=== PATIENT | male | born 1985 | race Asian ===

== ENCOUNTER 2023-12-11 07:43 | Outpatient (CLI) | payer OTHER ==
--- NOTE | 2023-12-12 18:50 | Ultrasound Report ---
PROCEDURE: Abdomen Limited INDICATIONS: HIST OF CHOLELITHIASIS TECHNIQUE: Real-time focused scanning was performed of the abdomen, with image documentation. COMPARISONS: None. FINDINGS: Liver: Liver is normal in size and homogeneous in echotexture. Main portal vein is patent with norm al hepatopedal flow. Gallbladder: Numerous stones within the gallbladder. No gallbladder wall thickening or pericholecysti c fluid. Sonographic Riley sign is negative.. Biliary ducts: Intrahepatic bile ducts are non-dilated. Extrahepatic bile duct caliber measures 0.3 mm. Normal is 6-7 mm or less in diameter, or 10 mm or less post-cholecystectomy. Pancreas: Not well visualized due to overlying bowel gas. Right kidney: Normal in size and echotexture. Right kidney measures 10.0 cm long. No hydronephrosis or nephrolithiasis. No solid masses. No complex renal cystic lesions which require follow-up. IVC: Intrahepatic inferior vena cava is patent. Miscellaneous: No free abdominal fluid. IMPRESSION: Cholelithiasis without sonographic evidence of acute cholecystitis. Reviewed by: Katerine Christian MD on 12/12/2023 4:07 PM PST Approved by: Katerine Christian MD on 12/12/2023 4:07 PM PST Station ID: [id number]
== END 2023-12-11 07:44 | disposition home or self-care (01) ==
LOC: DI 07:43
PROVIDERS: ATTEND Physician Assistant
DX: Z87.19 Personal history of other diseases of the digestive system (principal); K80.20 Calculus of gallbladder without cholecystitis without obstruction

== ENCOUNTER 2023-12-11 08:24 | Outpatient (CLI) | payer OTHER ==
[2023-12-11 08:45] LABS: BASOPHILS # (AUTO) 0.2 10^3/uL (0.0-0.1); BASOPHILS % (AUTO) 1.3 %; EOSINOPHILS # (AUTO) 0.2 10^3/uL (0.0-0.7); EOSINOPHILS % (AUTO) 1.7 %; HCT - HEMATOCRIT 48.6 % (42.0-52.0); HGB - HEMOGLOBIN 16.3 g/dL (14.0-18.0); LYMPHOCYTES # (AUTO) 5.2 10^3/uL (1.5-3.5); LYMPHOCYTES % (AUTO) 39.8 %; MEAN CORPUSCULAR HEMOGLOBIN 31.8 pg (27.0-31.0); MEAN CORPUSCULAR HGB CONC 33.5 g/dL (32.0-36.0); MEAN CORPUSCULAR VOLUME 94.7 fL (80.0-94.0); MEAN PLATELET VOLUME 10.4 fL (7.4-11.4); MONOCYTES # (AUTO) 0.9 10^3/uL (0.0-1.0); MONOCYTES % (AUTO) 6.9 %; NEUTROPHILS # (AUTO) 6.6 10^3/uL (1.5-6.6); NEUTROPHILS % (AUTO) 50.1 %; PLT - PLATELET COUNT 313 10^3/uL (130-450); RED BLOOD COUNT 5.13 10^6/uL (4.70-6.10); RED CELL DISTRIBUTION WIDTH 14.6 % (12.0-15.0); WHITE BLOOD COUNT 13.2 x10^3/uL (4.8-10.8)
[2023-12-11 08:57] LABS: ALBUMIN 4.5 g/dL (3.2-5.5); ALBUMIN/GLOBULIN RATIO 1.7 (1.0-2.2); ALKALINE PHOSPHATASE 74 IU/L (42-121); ALT ALANINE AMINOTRANSFERASE 17 IU/L (10-60); AST ASPARTATE AMINOTRANSFERASE 20 IU/L (10-42); BILIRUBIN,TOTAL 0.7 mg/dL (0.2-1.0); BUN - BLOOD UREA NITROGEN 8 mg/dL (6-20); CALCIUM 9.8 mg/dL (8.5-10.3); CARBON DIOXIDE - CO2 29 mmol/L (21-32); CHLORIDE 106 mmol/L (101-111); CHOL/HDL RATIO 4.5 (<5.0); CHOLESTEROL 220 mg/dL; CREATININE 0.7 mg/dL (0.6-1.3); GFR - MDRD 127 (>89); GLUCOSE 97 mg/dL (74-104); HDL CHOLESTEROL 49 mg/dL; LDL CHOLESTEROL,CALCULATED 152 mg/dL; LDL/HDL RATIO 3.1 (<3.6); POTASSIUM 4.1 mmol/L (3.5-4.5); SODIUM 139 mmol/L (135-145); TOTAL PROTEIN 7.1 g/dL (6.4-8.9); TRIGLYCERIDES 97 mg/dL (48-352); VLDL CHOLESTEROL 19 mg/dL
[2023-12-11 09:28] LABS: PLATELET ESTIMATE, MANUAL NORMAL (130-450,000) (NORMAL); PLATELET MORPHOLOGY NORMAL APPEARANCE (NORMAL); RBC MORPHOLOGY (MULTIPLE) NORMAL APPEARANCE (NORMAL)
--- NOTE | 2023-12-12 12:48 | XRAY Report ---
PROCEDURE: Clavicle LT INDICATIONS: FRACTURE OF UNSPECIFIED PART OF LEFT CLAVICLE, SEQ TECHNIQUE: 2 views of the clavicle were acquired. COMPARISON: None. FINDINGS: Bones: Status post clavicle fixation using plate and screw construct. Alignment appears near anatomi c. Acromioclavicular interval is maintained. No suspicious bony lesions. Soft tissues: No suspicious soft tissue calcifications or masses. IMPRESSION: Clavicular internal fixation in near-anatomic alignment. No evidence of hardware complication. Reviewed by: Katerine Christian MD on 12/12/2023 12:47 PM PST Approved by: Katerine Christian MD on 12/12/2023 12:47 PM PST Station ID: [id number]
== END 2023-12-11 08:25 | disposition home or self-care (01) ==
LOC: DI 08:24
PROVIDERS: ATTEND Physician Assistant
DX: S42.002D Fracture of unspecified part of left clavicle, subsequent encounter for fracture with routine healing (principal); Z00.00 Encounter for general adult medical examination without abnormal findings; Z13.220 Encounter for screening for lipoid disorders; Z87.19 Personal history of other diseases of the digestive system; K80.20 Calculus of gallbladder without cholecystitis without obstruction
CPT/HCPCS: 36415; 80053; 80061; 83721; 85025